=== PATIENT | female | born 1995 | race Caucasian/White ===

== ENCOUNTER 2019-07-21 20:24 | Emergency (ER) | payer BC, OTHER ==
[~2019-07-21] VITALS: Ht 175.3 cm; Wt 69.1 kg
[2019-07-21 20:24] VITALS: BP 130/69
[2019-07-21] MEDS ORDERED: BACITRACIN OINTMENT 30GM TUBE TOP STA (22:00)
[2019-07-21] MEDS ORDERED: BACI500O21 TOP (22:07)
[2019-07-21] MEDS ORDERED: BOOSTRIX/ADACEL VACCINE (DIPHTH/PERTUSS/ACELL/TETANUS) 0.5ML SYR IM ONE (22:15)
== END 2019-07-21 22:19 | disposition home or self-care (01) ==
LOC: M ED 20:24
DX: S80.811A Abrasion, right lower leg, initial encounter (principal); S70.311A Abrasion, right thigh, initial encounter; V28.5XXA Motorcycle passenger injured in noncollision transport accident in traffic accident, initial encounter; Y92.9 Unspecified place or not applicable; Y93.89 Activity, other specified; Y99.9 Unspecified external cause status